=== PATIENT | male | born 1990 | race American Indian/Alaskan Native ===

== ENCOUNTER 2022-02-01 10:46 | Emergency (ER) | payer SELFPAY ==
[2022-02-01 11:42] VITALS: BP 165/78
== END 2022-02-01 18:14 | disposition left against medical advice (07) ==
LOC: EDBD → ED 10:46
DX: R53.1 Weakness (principal); Z53.21 Procedure and treatment not carried out due to patient leaving prior to being seen by health care provider

== ENCOUNTER 2022-02-07 16:19 | Emergency (ER) | payer SELFPAY ==
[2022-02-07 17:33] VITALS: BP 127/73
[2022-02-07 20:16] LABS: Mucus,Urine 1+ /HPF
[2022-02-07 20:34] LABS: Bilirubin,Urine NEG (Negative); Color,Urine Straw (Yellow)
[2022-02-07 20:35] LABS: Blood,Urine Negative (Negative); Protein,Urine <15 mg/dL mg/dL (Negative); Urobilinogen,Urine < 2.0 mg/dL (<2.0)
== END 2022-02-07 21:25 | disposition left against medical advice (07) ==
LOC: ED 16:19
DX: R36.9 Urethral discharge, unspecified (principal); Z53.21 Procedure and treatment not carried out due to patient leaving prior to being seen by health care provider
CPT/HCPCS: 81001